=== PATIENT | female | born 1985 ===

== ENCOUNTER → 2020-12-25 | Outpatient (CLI) | payer OTHER ==
[~2020-12-25] MED LIST: ALLEGRA ALLERGY60 MG PO; FLONASE16 GM NS; GILTUSS TR TAB1 EACH PO; PRILOSEC10 MG
== END | disposition home or self-care (01) ==
LOC: PRENATAL 10:00
PROVIDERS: ATTEND Obstetrics & Gynecology Maternal & Fetal Medicine
DX: Z36.89 Encounter for other specified antenatal screening (principal); O36.80X1 Pregnancy with inconclusive fetal viability, fetus 1; Z3A.12 12 weeks gestation of pregnancy

== ENCOUNTER → 2021-02-18 | Outpatient (CLI) | payer OTHER | END | disposition home or self-care (01) | LOC: PRENATAL 08:00 | PROVIDERS: ATTEND Obstetrics & Gynecology Maternal & Fetal Medicine | DX: O35.0XX1 Maternal care for (suspected) central nervous system malformation in fetus, fetus 1 (principal); O35.3XX1 Maternal care for (suspected) damage to fetus from viral disease in mother, fetus 1; O98.512 Other viral diseases complicating pregnancy, second trimester; Z36.89 Encounter for other specified antenatal screening; Z3A.19 19 weeks gestation of pregnancy ==

== ENCOUNTER 2021-03-24 04:23 | Outpatient (CLI) | payer OTHER ==
[2021-03-24] MEDS ORDERED: PRENATAL TABLE1 EAC1 PO (05:04)
== END 2021-03-24 12:29 | disposition home or self-care (01) ==
LOC: OBS/DEL 04:23 → LDR 04:32 → OBS/DEL 04:38
PROVIDERS: ATTEND Obstetrics & Gynecology
DX: O60.02 Preterm labor without delivery, second trimester (principal); Z3A.25 25 weeks gestation of pregnancy

== ENCOUNTER → 2021-04-19 | Outpatient (CLI) | payer OTHER ==
[~2021-04-19] MED LIST changes: +PRENATAL TABLE1 EAC1 PO
== END | disposition home or self-care (01) ==
LOC: PRENATAL 13:00
PROVIDERS: ATTEND Obstetrics & Gynecology Maternal & Fetal Medicine
DX: O26.843 Uterine size-date discrepancy, third trimester (principal); O36.5931 Maternal care for other known or suspected poor fetal growth, third trimester, fetus 1; Z36.89 Encounter for other specified antenatal screening; Z3A.28 28 weeks gestation of pregnancy

== ENCOUNTER → 2021-05-16 | Outpatient (CLI) | payer OTHER ==
[~2021-05-16] MED LIST changes: +MAGNESIUM500 MG PO; +ORTHO DF 3,7751 EACH PO
== END | disposition home or self-care (01) ==
LOC: PRENATAL 13:51
PROVIDERS: ATTEND Obstetrics & Gynecology Maternal & Fetal Medicine
DX: O26.843 Uterine size-date discrepancy, third trimester (principal); O36.5931 Maternal care for other known or suspected poor fetal growth, third trimester, fetus 1; O36.8131 Decreased fetal movements, third trimester, fetus 1; Z36.89 Encounter for other specified antenatal screening; Z3A.32 32 weeks gestation of pregnancy

== ENCOUNTER 2021-06-11 13:04 | Inpatient (IN) | payer OTHER ==
[~2021-06-11] VITALS: Ht 160 cm; Wt 2.3 kg
[~2021-06-11 13:04] MED LIST changes: -MAGNESIUM500 MG PO; -ORTHO DF 3,7751 EACH PO
[2021-06-11] MEDS ORDERED: MAGNESIUM500 MG PO (14:32)
[2021-06-11] MEDS ORDERED: ORTHO DF 3,7751 EACH PO (14:34)
== END 2021-06-17 14:53 | disposition home or self-care (01) | DRG 788 ==
LOC: OBS/DEL 13:04 → LDR 13:32 → O/R 06-14 11:48 → OB/GYN 06-14 16:04
PROVIDERS: ADMIT Obstetrics & Gynecology; ATTEND Obstetrics & Gynecology
PROC: 4A1HXFZ Monitoring of Products of Conception, Cardiac Rhythm, External Approach (ICD-10-PCS; 2021-06-11)
PROC: 10D00Z1 Extraction of Products of Conception, Low, Open Approach (ICD-10-PCS; principal; 2021-06-14 07:00)
DX: O76 Abnormality in fetal heart rate and rhythm complicating labor and delivery (principal); O36.5930 Maternal care for other known or suspected poor fetal growth, third trimester, not applicable or unspecified; Z3A.36 36 weeks gestation of pregnancy; Z37.0 Single live birth; Z20.822 Contact with and (suspected) exposure to COVID-19